=== PATIENT | female | born 1950 | race Two or more races ===

== ENCOUNTER 2025-02-04 07:14 | Outpatient (CLI) | payer OTHER | END 2025-02-04 07:15 | disposition home or self-care (01) | LOC: NUCLEAR 07:14 | PROVIDERS: ATTEND Neuromusculoskeletal Medicine & OMM | DX: G30.0 Alzheimer's disease with early onset (principal); G31.09 Other frontotemporal neurocognitive disorder | CPT/HCPCS: 78814; A9552 ==

== ENCOUNTER 2025-02-13 07:04 | Outpatient (CLI) | payer OTHER | END 2025-02-13 07:11 | disposition home or self-care (01) | LOC: MRI 07:04 | PROVIDERS: ATTEND Neuromusculoskeletal Medicine & OMM | DX: R41.3 Other amnesia (principal); D49.6 Neoplasm of unspecified behavior of brain; G40.909 Epilepsy, unspecified, not intractable, without status epilepticus | CPT/HCPCS: 70553 ==